=== PATIENT | male | born 1945 | race Caucasian/White ===

== ENCOUNTER 2017-08-05 01:58 | Emergency (ER) | payer OTHER ==
[~2017-08-05] VITALS: Ht 185.4 cm; Wt 120.2 kg
[2017-08-05 02:06] VITALS: Ht 185.4 cm; Wt 120.2 kg
[2017-08-05 02:49] LABS: CALCIUM 8.9 mg/dL (8.5-10.1); CARBON DIOXIDE 27.1 mmol/L (21-32); CHLORIDE SERUM 100 mmol/L (98-107); CREATININE SERUM 1.4 mg/dL (0.7-1.3); GLUCOSE SERUM 185 mg/dL (74-106); POTASSIUM SERUM 4.4 mmol/L (3.5-5.1); SODIUM SERUM 137 mmol/L (136-145)
[2017-08-05 03:03] LABS: ALBUMIN 2.9 g/dL (3.4-5.0); ALKALINE PHOSPHATASE 76 U/L (46-116); ALT/SGPT 24 U/L (16-63); AST/SGOT 26 U/L (15-37); BILIRUBIN TOTAL 0.98 mg/dL (0.20-1.00); LIPASE 69 IU/L (73-393)
[2017-08-05 03:16] LABS: BASOPHIL % 0.2 % (0-2); PLATELET COUNT 179 x10^3mcL (130-400)
[2017-08-05 03:40] LABS: RED CELL DISTRIBUTION WIDTH 15.2 % (11.5-14.5)
[2017-08-05 04:44] LABS: UA SPECIFIC GRAVITY >=1.030 (1.005-1.035); microscopic required? YES; urine erythrocyte TRACE (NEGATIVE)
[2017-08-05 07:19] VITALS: BP 139/72
== END 2017-08-05 07:20 | disposition short-term general hospital (02) ==
LOC: ED 01:58
PROVIDERS: Emergency Medicine
DX: J18.9 Pneumonia, unspecified organism (principal); I10 Essential (primary) hypertension; E78.00 Pure hypercholesterolemia, unspecified; Z88.0 Allergy status to penicillin; Z88.2 Allergy status to sulfonamides
CPT/HCPCS: 36600; 83880; 84439; 87804; J1956; Q0092